=== PATIENT | male | born 1975 | race Two or more races ===

== ENCOUNTER 2018-07-16 11:30 | Emergency (ER) | payer OTHER ==
--- NOTE | 2018-07-16 13:02 | EDPHY ---
H & P Time Seen by Provider: 07/16/18 12:39 HPI/ROS: Clinical Impression: Right ankle strain, right knee contusion Assessment/Plan: 43-year-old male presents to the emergency department with complaints of right knee and right ankle pain after a ground level fall this morning. Patient has been ambulatory but with discomfort. He has no obvious joint effusion, deformity, open wound, and neurovascular exams are intact. No radiologic evidence of acute fracture or dislocation. Suspect ligamentous injury or soft tissue contusion. Right treatment reviewed, [id number] medications recommended, orthopedic referral provided, warning signs return to ER sooner outlined and discharge Differential Dx: Differential diagnosis includes but not limited to acute fracture, joint dislocation, ligamentous injury ED Course: 1310: Preliminary review of x-rays of ankle and knee show no evidence of acute fracture. Chief Complaint: Right knee and right ankle pain HPI: This is a pleasant otherwise healthy 43-year-old [place] Citizen male who presents to the emergency department with right knee and right ankle pain after he slid on the ice outside his home this morning and fell. He was able to get up, did not hit his head and has been ambulatory. He states"I just wanted to get my leg checked out". No prior orthopedic surgery or injury. No loss of sensation. No open wounds. PMH: None reported Pertinent Past Surgical History: No prior Ortho injury or surgery Social History: Nonsmoker ROS: All other systems negative Constitutional: No fever, no chills Musculoskeletal: No deformity, + joint pain Skin: No rashes, color change or open wounds. Neurological: No sensory loss or weakness. Physical Exam: General Appearance: Alert, oriented, appropriate for age, cooperative, NAD, well hydrated, non-toxic appearing, VSS, no hypoxia. Neurological: Alert and oriented x 3, normal sensation and strength of extremities Skin: Warm, dry, no rashes, no nodules on palpation. Musculoskeletal: No obvious contusion, swelling or deformity of the right knee. Negative anterior drawer testing. Normal range of motion of the ankle. Tenderness to palpation on the anterior aspect of the ankle above the talus. No open wounds. Neurovascular exam intact MDM: Patient was seen independently by established practice protocols. Secondary supervising physician at time of evaluation was Dr. Ardon . Diagnosis: Right ankle strain, right knee contusion . New, requires workup Summary: See assessment and plan for summary of ED visit Independent visualization of images, tracing, or specimens Yes Patient Progress stable . Smoking Status: Never smoked Constitutional: Initial Vital Signs Temperature (C) 36.6 C 07/16/18 11:32 Heart Rate 78 07/16/18 11:32 Respiratory Rate 18 07/16/18 11:32 Blood Pressure 172/102 H 07/16/18 11:32 O2 Sat (%) 97 07/16/18 11:32 O2 Delivery Mode Room Air Allergies/Adverse Reactions: No Known Allergies Allergy (Unverified 07/16/18 11:36) Home Medications: Medication Instructions Recorded NK [No Known Home Meds] 07/16/18 MDM/Departure - MDM Imaging: I viewed and interpreted images myself - Depart Disposition: Home, Routine, Self-Care Clinical Impression: Right ankle sprain, Knee contusion Condition: Good Instructions: Ankle Sprain (ED), Contusion in Adults (ED) Additional Instructions: DISCHARGE INSTRUCTIONS FROM YOUR DOCTOR Thank you for visiting our emergency department today. Please keep in mind that discharge from the emergency department does not mean that there is nothing wrong - it simply means that we have not identified an emergency condition that requires further evaluation or treatment in the hospital. You should always plan to follow up with primary care for re-evaluation of your condition in the next 2-3 days. If you have been referred to a specialist, please call as soon as possible (today or tomorrow) to schedule your follow up appointment at the appropriate time. [Preliminary x-rays of your ankle and knee show no evidence of fracture or dislocation. You likely bruised the bone or strained the ligaments. Rest and elevate the affected extremity as much as possible. Ice the affected areas 20 min on, 20 min off for the next several days. Please use Tylenol or ibuprofen over the counter in appropriate doses as outlined on your discharge papers. Take ibuprofen with food and a large glass of water. Please follow-up with Orthopedics if her pain persist. Return to ED for any other concerns. People present with illnesses and injuries in different ways, and it is always possible that we have missed something. You may always return for re-evaluation if symptoms worsen or if they are not improving or if you develop new/different symptoms. Again, thank you for choosing our emergency department. We hope that you feel better. Referrals: NONE *PRIMARY CARE P,. [Primary Care Provider] - As per Instructions Johann Charlton MD [Medical Doctor] - As per Instructions
[2018-07-16 13:31] VITALS: BP 146/87
== END 2018-07-16 13:31 | disposition home or self-care (01) ==
DX: S93.401A Sprain of unspecified ligament of right ankle, initial encounter (principal); S80.01XA Contusion of right knee, initial encounter; W00.9XXA Unspecified fall due to ice and snow, initial encounter; Y92.9 Unspecified place or not applicable; Y93.9 Activity, unspecified; Y99.9 Unspecified external cause status

== ENCOUNTER 2018-10-02 15:03 | Emergency (ER) | payer OTHER ==
[2018-10-02] MEDS ORDERED: DEXAMETHASONE 4 MG/ML VIAL IVP ONE (15:52)
[2018-10-02] MEDS ORDERED: NS 1,000 ML IV ONE (15:52)
[2018-10-02] MEDS ORDERED: KETOROLAC 15 MG/1 ML SDV IVP/IM ONE (15:52)
[2018-10-02] MEDS ORDERED: METOCLOPRAMIDE 10 MG/2 ML VIAL IVP ONE (15:52)
--- NOTE | 2018-10-02 15:55 | EDPHY ---
H & P Stated Complaint: H/A c photophobia since yest. No Hx, denies N/V, no relief from OTC - Personal History Current Tetanus/Diphtheria Vaccine: Unsure - Medical/Surgical History Hx Asthma: No Hx Chronic Respiratory Disease: No Hx Diabetes: No Hx Cardiac Disease: No Hx Renal Disease: No Hx Cirrhosis: No Hx Alcoholism: No Hx HIV/AIDS: No Hx Splenectomy or Spleen Trauma: No Other PMH: Previous injury to right ankle. - Social History Smoking Status: Never smoked Time Seen by Provider: 10/02/18 15:42 HPI/ROS: CHIEF COMPLAINT: Headache times 24 hr HISTORY OF PRESENT ILLNESS: 43-year-old generally healthy male complaining of non thunderclap headache which started yesterday afternoon. No history of chronic headache/migraine. He describes coming back from a hike yesterday, started to experience visual aura/wiggly lines in his visual field and soon thereafter developed a non thunderclap right sided headache with associated photophobia, audio phobia, nausea with no vomiting. Patient has history of acute closed angle glaucoma bilaterally 1 year ago with iridtomy in [facility]. States that this feels similar to his prior episode. No gait instability. No slurred speech. No abdominal pain. No neck pain. No cold or flu-like symptoms. No ophtalgia. No trauma no fall. No history of major or minor neck trauma or manipulation. REVIEW OF SYSTEMS: 10 systems reviewed and negative with the exception of the elements mentioned in the history of present illness PAST MEDICAL & SURGICAL HISTORY: History of close closed angle glaucoma with bilateral iridotomy 1 year ago in [facility] SOCIAL HISTORY: Nonsmoker. No drug use. Marrried PHYSICAL EXAM (Prior to examination, patient consented to physical exam, hands were washed and my usual and customary physical exam procedures followed) 1) GENERAL: Well-developed, well-nourished, alert and oriented. Appears uncomfortable, sitting in a darkened room with his eyes covered 2) HEAD: Normocephalic, atraumatic. No pain to palpation of the temporal region bilaterally 3) HEENT: Pupils equal, round, reactive to light bilaterally. Right eye tonometry: 62 left eye tonometry: 41 I rechecked bilateral tonometry 3 times and the pressures are consistently elevated. Sclera anicteric. No injection bilaterally Nasopharynx, oropharynx, clear, no lesions. Moist mucous membranes. Ears bilaterally with normal tympanic membranes. 4) NECK: Full range of motion, no meningeal signs. 5) LUNGS: Clear auscultation bilaterally, no wheezes, no rhonchi, no retractions. 6) HEART: Regular rate and rhythm, no murmur, no heave, no gallop. 7) ABDOMEN: No guarding, no rebound, no focal tenderness, negative McBurney's, negative Plummer's, negative Rovsing's, negative peritoneal sign, 8) MUSCULOSKELETAL: Moving all extremities, no focal areas of tenderness, no obvious trauma. No peripheral edema or discoloration. 9) BACK: No CVA tenderness, no midline vertebral tenderness, no fluctuance, no step-off, no obvious trauma, no visual or palpable abnormality. 10) SKIN: No rash, no petechiae. 11) Psychiatric: Patient is oriented X 3, there is no agitation. 12) NEURO: Awake, alert, and oriented to person, place and time. Answers questions appropriately. There were no obvious focal neurologic abnormalities. No cerebellar dysfunction. Cranial nerves 2 through to 12 intact. Normal steady gait. Upper and lower extremities bilaterally with strength 5 / 5, reflexes 2+. DIFFERENTIAL DIAGNOSIS: In no particular order, including but not limited to acute closed angle glaucoma, subarachnoid hemorrhage, migraine headache, tension headache and infectious causes such as meningitis, pharyngitis and sinusitis. The patient understands that this diagnosis is provisional and can never be 100% accurate. Usual and customary warnings were given concerning the clinical impression and all the patient's questions were answered. The patient was instructed to return to the emergency department should her symptoms worsen or return, or develop any new symptoms, otherwise to followup as directed in discharge instructions. This is a partial list of diagnoses considered. These considerations are based on history, physical exam, past history and reassessment. (Marybeth Dodge) Constitutional: Initial Vital Signs Temperature (C) 36.4 C 10/02/18 15:09 Heart Rate 67 10/02/18 15:09 Respiratory Rate 14 10/02/18 15:09 Blood Pressure 150/84 H 10/02/18 15:09 O2 Sat (%) 99 10/02/18 15:09 O2 Delivery Mode Nasal Cannula O2 (L/minute) 2 Allergies/Adverse Reactions: No Known Allergies Allergy (Verified 10/02/18 15:09) Home Medications: Medication Instructions Recorded NK [No Known Home Meds] 07/16/18 Medical Decision Making ED Course/Re-evaluation: Discussed care plan for acute closed angle glaucoma with SIMI Dodge. Agree with treatment plan. Patient will be discharged directly to patient care director's office for further evaluation. (Trae Phelps) 4:48 p.m.: Noncontrast CT head negative per Radiology interpretation. Images reviewed myself. 5:13 p.m.: Patient noted to have elevated intra-ocular pressure, right eye 62, left eye 41. I rechecked the patient's intra-ocular pressures 3 times in each eye and numbers are consistently elevated. Patient informed that this feels similar to prior glaucoma tacked 1 year ago when he was in [place] when he initially had his laser your daughter me. Most recently he was in [place] 1 month ago for [place], saw his patient care director and his pressures were in the teens bilaterally. Discussed this with Dr. Trae Phelps in the ER. Concerns over acute closed angle glaucoma. Have ordered 0.5% timolol drops, 1% apraclonidine, 2% pilocarpine drops, 1 drop every 1 min as well as 500 mg IV Diamox. On-call ophthalmology been paged 5:40 p.m. No response from on-call ophthalmology who has been paged again. 6 pm: As no response from on-call ophthalmology, I consulted with Dr. Radha Etienne at this time who agrees to see the patient in her office this evening. 610 pm: Phone call from on-call ophthalmology Dr. Hayden Fam at this time who agrees to see the patient in his office at 7:30 p.m.. He recommends the continued therapy with Diamox, timolol, apraclonidine and pilocarpine. I spoke with Dr. Radha Etienne to convey that Dr. Hayden Fam will see the patient instead this evening. I discussed this plan with the patient with assistance of conference interpreter. Both the patient his feel comfortable going to the patient care director office near the hospital. (Marybeth Dodge) - Data Points Laboratory Results: Laboratory Results 10/02/18 16:00 10/02/18 16:00 Medications Given: Discontinued Medications Apraclonidine HCl (Iopidine 0.5%) 1 drops EACHEYE TID [facility] Stop: 03/31/19 21:59 Last Admin: 10/02/18 18:05 Dose: 1 dose Dexamethasone (Decadron Injection) 8 mg IVP EDNOW ONE Stop: 10/02/18 15:53 Last Admin: 10/02/18 16:12 Dose: 8 mg Haloperidol Lactate (Haldol Injection) 2.5 mg IVP EDNOW ONE Stop: 10/02/18 16:44 Last Admin: 10/02/18 17:11 Dose: 2.5 mg Sodium Chloride (Ns) 1,000 mls @ 3,000 mls/hr IV EDNOW ONE Stop: 10/02/18 16:11 Last Admin: 10/02/18 16:00 Dose: 1,000 mls Acetazolamide 500 mg/ Syringe 5 mls @ 60 mls/hr IVP ONCE ONE Stop: 10/02/18 17:26 Last Admin: 10/02/18 17:46 Dose: 5 mls Ketorolac Tromethamine (Toradol) 15 mg IVP/IM EDNOW ONE Stop: 10/02/18 15:53 Last Admin: 10/02/18 16:12 Dose: 15 mg Metoclopramide HCl (Reglan Injection) 10 mg IVP EDNOW ONE Stop: 10/02/18 15:53 Last Admin: 10/02/18 16:12 Dose: 10 mg Pilocarpine (Isopto Carpine 2%) 1 drops EACHEYE QID [facility] Stop: 03/31/19 20:59 Last Admin: 10/02/18 17:57 Dose: 1 drop Timolol Maleate (Timoptic 0.5%) 1 drops EACHEYE BID [facility] Stop: 03/31/19 20:59 Last Admin: 10/02/18 17:51 Dose: 1 drop Departure - Departure Disposition: Home, Routine, Self-Care Clinical Impression: Acute closed-angle glaucoma Qualifiers: Laterality: bilateral Qualified Code(s): H40.213 - Acute angle-closure glaucoma , bilateral Condition: Fair Instructions: Pilocarpine (Into the eye), Timolol (Into the eye), Apraclonidine (Into the eye), Glaucoma (ED) Referrals: Hayden Fam MD [Medical Doctor] - 10/02/18 7:30 pm (Dr. Hayden Fam is expecting you at 7:30 p.m. this evening) Print Language: Tuvaluan
[2018-10-02 16:17] LABS: PLATELET COUNT 327 10^3/uL (150-400)
[2018-10-02] MEDS ORDERED: HALOPERIDOL LACT 5 MG/ML INJ IVP ONE (16:43)
[2018-10-02] MEDS ORDERED: PROPARACAINE 0.5% 15 ML OPHT DROP OP ONE (16:56)
[2018-10-02] MEDS ORDERED: acetaZOLAMIDE 500 MG in SYRINGE 0 ML IVP ONE (17:22)
[2018-10-02 18:13] VITALS: BP 140/86
[2018-10-02] MEDS ORDERED: TIMOLOL 0.5% 15 ML OPHT.BTL EACHEYE SCH (21:00)
[2018-10-02] MEDS ORDERED: PILOCARPINE 2% EACHEYE SCH (21:00)
[2018-10-02] MEDS ORDERED: APRACLONIDINE 0.5% EACHEYE SCH (22:00)
== END 2018-10-02 19:18 | disposition home or self-care (01) ==
DX: H40.213 Acute angle-closure glaucoma, bilateral (principal)
CPT/HCPCS: 96374; J1100; J1120; J1630; J1885; J2765